=== PATIENT | male | born 1955 | race Caucasian/White ===

== ENCOUNTER 2020-05-08 17:24 | Inpatient (IN) | payer MEDICARE ==
[~2020-05-08] VITALS: Ht 188 cm; Wt 74.3 kg
[2020-05-08] MEDS ORDERED: OMNIPAQUE 350 MG/ML, 100ML BOTTLE ONE (17:48)
--- NOTE | 2020-05-08 18:05 | NUR ---
ELDA REINA FROM [facility] - PER STAFF, PT AT NURSING HOME WITH L SIDED DEFICITS FROM PREV STROKE BUT PT "LESS VERBAL AND HAS A R HAND TIC" NOW. ACCORDING TO EMS PTS BASELINE SIGNIFIGANT L SIDED DEFICITS, AOX2-3. PT TO CT, 20G R FOREARM PLACED IN CT. PT RETURNED TO ROOM, PT ABLE TO ANSWER QUESTIONS OF NAME, YEAR AND LOCATION, PT FOLLOWING COMMANDS HOWEVER MUCH WEAKER ON L SIDE. PT HAS FEVER OF 101.1F AND BELIEVED TO HAVE COVID OUTBREAK AT NURSING HOME, NOTIFIED AND PT PLACED ON ISOLATION. TELE NEURO COMPLETE. PT ON MONITOR, VSS.
[2020-05-08 18:10] LABS: BASOPHILS # (AUTO) 0.01 x10^3/uL (0-0.1); BASOPHILS % (AUTO) 0 % (0-1); EOSINOPHILS % (AUTO) 0 % (1-7); LYMPHOCYTES # (AUTO) 0.49 x10^3/uL (1-3.4); LYMPHOCYTES % (AUTO) 5 % (22-44); MD NO; MEAN CORPUSCULAR HEMOGLOBIN 28.5 pg (27.5-34.5); MEAN CORPUSCULAR HGB CONC 32.3 g/dL (33.2-36.2); MEAN PLATELET VOLUME 10.2 fL (7.4-10.4); MONOCYTES # (AUTO) 0.54 x10^3/uL (0.2-0.8); MONOCYTES % (AUTO) 5 % (2-9); NEUTROPHILS # (AUTO) 9.37 x10^3/uL (1.8-6.8); NEUTROPHILS % (AUTO) 90 % (42-75); PLATELET COUNT 122 x10^3/uL (130-400); RED BLOOD COUNT 4.35 x10^6/uL (4.38-5.82); RED CELL DISTRIBUTION WIDTH 14.4 % (9.4-14.8)
--- NOTE | 2020-05-08 18:14 | NUR ---
PER NO TPA AT THIS TIME
--- NOTE | 2020-05-08 18:20 | NUR ---
LAB AT BEDSIDE FOR BLOOD CULTURES
[2020-05-08 18:22] LABS: INTERNATIONAL NORMALIZED RATIO 0.99 (0.93-1.1); PROTHROMBIN TIME 10.5 Seconds (9.6-11.5)
[2020-05-08] MEDS ORDERED: ACETAMINOPHEN 650 MG SUPP PR ONE (18:30)
[2020-05-08] MEDS ORDERED: SODIUM CHLORIDE 0.9% 1,000ML IVBOLUS ONE ×2 (18:30→21:30)
[2020-05-08] MEDS ORDERED: CEFTRIAXONE PMX 1GM/50ML 50 ML IVPB ONE (18:30)
[2020-05-08] MEDS ORDERED: PLEASE ENTER ALLERGIES MC SCH (18:30)
[2020-05-08] MEDS ORDERED: CEFTRIAXONE PMX 1GM/50ML 50 ML ONE (18:36)
[2020-05-08] MEDS ORDERED: ACETAMINOPHEN 650 MG SUPP ONE (18:36)
--- NOTE | 2020-05-08 18:51 | NUR ---
ATTEMPTED TO CALL [facility] AND [facility] FOR PT INFORMATION. BOTH FACILITIES DECLINING THEY HAVE ANYONE BY THAT NAME.
--- NOTE | 2020-05-08 19:05 | NUR ---
PT GIVEN TYLENOL DC FOR FEVER, IVF BOLUS AND ABX STARTED AFTER BC DRAWN. PT SWABBED BY FOR COVID. URINE SAMPLE COLLECTED AND WALKED TO LAB.
--- NOTE | 2020-05-08 19:06 | NUR ---
REPORT TO VINICIO TATUM
--- NOTE | 2020-05-08 19:09 | NUR ---
RECEIVED BS REPORT FROM RC GUZMAN TO ASSUME CARE OF PT. AT THIS TIME. PT. DENIES NEEDS CURRENTLY. IV ABX AND IV FLUIDS INFUSING AT THIS TIME PER MAR. ALL MONITORS IN PLACE. ALL SAFETY MEASURES OBSERVED. PT. A&O X 2-3 AND THIS IS BASELINE PER REPORT. PAN IN PLACE.
[2020-05-08 19:11] LABS: MICROSCOPIC INDICATED
--- NOTE | 2020-05-08 19:45 | NUR ---
PT. CONTINUES RESTING ON GURNEY WITH NO DISTRESS. DENIES NEEDS. IVF COMPLETED. VS UPDATED. AWAITING PLACEMENT UPSTAIRS.
[2020-05-08] MEDS ORDERED: LABETALOL 5MG/ML, 20ML IVPush PRN (21:00)
[2020-05-08] MEDS ORDERED: ONDANSETRON 2MG/ML, 2ML IVPush PRN (21:00)
[2020-05-08] MEDS ORDERED: CEFTRIAXONE PMX 1GM/50ML 50 ML IV SCH (21:00)
--- NOTE | 2020-05-08 21:03 | NUR ---
FIRST ATTEMPT TO CALL REPORT TO FLOOR.
--- NOTE | 2020-05-08 21:04 | NUR ---
PT. CONTINUES RESTING ON GURNEY WITH NO COMPLAINTS. DENIES NEEDS. AWARE OF PLAN FOR ADMISSION TO FLOOR.
--- NOTE | 2020-05-08 21:19 | NUR ---
2ND ATTEMPT TO CALL REPORT TO FLOOR.
--- NOTE | 2020-05-08 21:31 | NUR ---
REPORT CALLED TO RC DAY. RN STATES THE ROOM IS NOT CLEAN AND READY FOR PT. TRANSPORT AND THAT WE WILL GET A CALL WHEN ROOM IS READY.
[2020-05-08 21:49] LABS: ALBUMIN 2.2 g/dL (3.4-5.0)
[2020-05-08] MEDS ORDERED: ACETAMINOPHEN 325 MG TABLET ONE (21:51)
[2020-05-08] MEDS: ACETAMINOPHEN 325 MG TABLET PO PRN (21:58)
--- NOTE | 2020-05-08 21:58 | NUR ---
PT. WITH NOTED TEMP AGAIN TO 100.3; MEDICATED PER MAR WITH PO TYLENOL. PT. WAS ABLE TO PASS SWALLOW EVAL PRIOR TO BEING MEDICATED. PT. IS ABLE TO FOLLOW MOST COMMANDS BUT DOES REMAIN CONFUSED TO WHY HE IS IN HOSPITAL. PT. ABLE TO SWALLOW FIRST PILL WITH WATER WITHOUT ISSUE. PT. DID CHEW UP THE 2ND PILL HOWEVER BUT WAS ABLE TO GET IT DOWN WITH WATER. PT. INTERMITTENLY CONFUSED.
[2020-05-08 22:01] LABS: BILIRUBIN, DIRECT 0.2 mg/dL (0.1-0.2); BILIRUBIN,INDIRECT 0.2 mg/dL (0.0-2.0); BILIRUBIN,TOTAL 0.4 mg/dL (0.2-1.0); TOTAL PROTEIN 6.5 g/dL (6.4-8.2)
--- NOTE | 2020-05-08 22:13 | NUR ---
PT. BEING TRANSPORTED TO FLOOR AT THIS TIME. FSBS OF 214 REPORTED TO [facility]. REQUESTED [facility] TO ENSURE TO CHART B/P'S AFTER BOLUS COMPLETED. BOLUS WAS ABOUT HALF-WAY COMPLETED AT TIME OF TRANSFER TO FLOOR.
[2020-05-08 22:25] VITALS: BP 73/49
[2020-05-08 22:25] LABS: AMPHETAMINE SCREEN, URINE Negative (Negative); BARBITURATE SCREEN, URINE Negative (Negative); BENZODIAZEPINE SCREEN, URINE Negative (Negative); CANNABINOID SCREEN, URINE Negative (Negative); COCAINE SCREEN, URINE Negative (Negative); METHADONE SCREEN, URINE Negative (Negative); OPIATE SCREEN, URINE Negative (Negative)
[2020-05-08 22:48] VITALS: BP 84/56
[2020-05-08] MEDS: LACTATED RINGERS 1,000 ML IV SCH (22:51)
[2020-05-08] MEDS ORDERED: SODIUM CHLORIDE 0.9%, 500ML IVBOLUS ONE (23:00)
[2020-05-08 23:05] VITALS: BP 83/54
[2020-05-08] MEDS: INSULIN LISPRO 100 UNITS/ML, PEN SQ-INSULIN SCH (23:40)
[2020-05-09 00:12] VITALS: BP 81/53
[2020-05-09 00:18] VITALS: BP 86/57
[2020-05-09 00:54] VITALS: BP 92/63
[2020-05-09] MEDS ORDERED: VANCOMYCIN PER PHARMACY MC PRN (02:30)
[2020-05-09] MEDS ORDERED: PHARMACY MAY ADJ FOR RENAL FX MC PRN (02:30)
[2020-05-09] MEDS ORDERED: ACETAMINOPHEN 650 MG SUPP PR PRN (02:30)
[2020-05-09] MEDS: NOREPINEPHRINE 8 MG in SODIUM CHLORIDE 0.9% 242 ML IV PRN ×2 (02:45→09:30)
[2020-05-09] MEDS ORDERED: PHARMACOKINETIC MONITORING MC PRN (03:00)
[2020-05-09] MEDS ORDERED: VANCOMYCIN 2,000 MG in SODIUM CHLORIDE 0.9% 500 ML IV ONE (03:00)
[2020-05-09] MEDS ORDERED: PHARMACOKINETIC CONSULTATION MC ONE (03:00)
[2020-05-09] MEDS: PIPERACILLIN/TAZO/PMX 3.375GM 50 ML IV SCH ×4 (03:38→21:32)
[2020-05-09] MEDS ORDERED: ASPIRIN 81 MG TABLET EC PO SCH (06:00)
[2020-05-09 07:25] LABS: ANION GAP 9 mmol/L (5-15); CALCIUM 8.1 mg/dL (8.5-10.1); CHLORIDE 114 mmol/L (98-107); CHOLESTEROL, TOTAL 51 mg/dL (140-239); TRIGLYCERIDES 119 mg/dL (50-200); VLDL CHOLESTEROL 24 mg/dL (0-25)
[2020-05-09 07:28] LABS: CHOL/HDL RATIO 1.8; HDL CHOL % 55 % (26-37); HDL CHOLESTEROL (DIRECT) 28 mg/dL (40-60)
[2020-05-09] MEDS: INSULIN LISPRO 100 UNITS/ML, PEN SQ-INSULIN SCH ×4 (07:29→21:40)
[2020-05-09 07:39] LABS: LDL CHOLESTEROL,CALCULATED < 5 mg/dL (54-169); LDL/HDL RATIO 0.2 (0.5-3.0)
[2020-05-09 07:52] LABS: MD YES; MEAN CORPUSCULAR HEMOGLOBIN 28.5 pg (27.5-34.5); RED BLOOD COUNT 4.45 x10^6/uL (4.38-5.82); RED CELL DISTRIBUTION WIDTH 14.9 % (9.4-14.8)
[2020-05-09 07:53] LABS: BAND#(MANUAL) 6.88 x10^3/uL; BANDS%(MANUAL) 25 % (0-7); LYMPH#(MANUAL) 0.55 x10^3/uL (1-3.4); LYMPHS% (MANUAL) 2 % (22-44); METAMYELOCYTES# (MANUAL) 1.38 x10^3/uL (0-0); METAMYELOCYTES% (MANUAL) 5 % (0-1); MONOS#(MANUAL) 0.55 x10^3/uL (0.3-2.7); MONOS% (MANUAL) 2 % (2-9); PMNS WITH VACUOLES 1+; SEG#(MANUAL) 18.15 x10^3/uL (1.8-6.8); SEGS% (MANUAL) 66 % (42-75)
[2020-05-09 08:00] LABS: MEAN PLATELET VOLUME 10.2 fL (7.4-10.4); PLATELET COUNT 91 x10^3/uL (130-400)
[2020-05-09 08:01] LABS: <PLATELET ESTIMATE> DECREASED; <PLT MORPHOLOGY> NORMAL PLT MORPH; <RBC MORPHOLOGY> NORMAL
[2020-05-09 08:39] LABS: HCT (SEDRATE) 39.6 % (39.2-51.8)
[2020-05-09] MEDS ORDERED: SODIUM CHLORIDE 0.9% 1,000ML IV ONE (09:00)
[2020-05-09] MEDS: LACTATED RINGERS 1,000 ML IV SCH ×2 (09:55→15:38)
[2020-05-09] MEDS ORDERED: NOREPINEPHRINE 32 MG in SODIUM CHLORIDE 0.9% 218 ML IV PRN (10:00)
[2020-05-09] MEDS: morphine SULFATE 10 MG/ML, 1ML IVPush PRN ×3 (10:09→22:27)
[2020-05-09] MEDS: D5%-0.45NACL+KCL 40MEQ 1,000 ML IV SCH ×2 (14:20→22:28)
[2020-05-09] MEDS: HEPARIN 5,000 UNITS/ML, 1ML SQ SCH (14:22)
[2020-05-09] MEDS ORDERED: MORPHINE SULFATE 4 MG/ML, 1ML ONE (22:25)
[2020-05-10] MEDS: HEPARIN 5,000 UNITS/ML, 1ML SQ SCH ×2 (01:18→11:17)
[2020-05-10 01:35] LABS: MICROSCOPIC INDICATED
[2020-05-10] MEDS: PIPERACILLIN/TAZO/PMX 3.375GM 50 ML IV SCH ×4 (02:11→21:40)
[2020-05-10] MEDS: VANCOMYCIN 1,500 MG in SODIUM CHLORIDE 0.9% 250 ML IV SCH (04:22)
[2020-05-10 04:44] LABS: CHLORIDE 116 mmol/L (98-107)
[2020-05-10 04:59] LABS: MD YES; MEAN CORPUSCULAR HEMOGLOBIN 28.3 pg (27.5-34.5); MEAN CORPUSCULAR HGB CONC 31.5 g/dL (33.2-36.2); MEAN PLATELET VOLUME 11.5 fL (7.4-10.4); PLATELET COUNT 69 x10^3/uL (130-400); RED BLOOD COUNT 4.16 x10^6/uL (4.38-5.82); RED CELL DISTRIBUTION WIDTH 14.8 % (9.4-14.8)
[2020-05-10 05:01] LABS: <PLATELET ESTIMATE> DECREASED; <RBC MORPHOLOGY> NORMAL; BAND#(MANUAL) 14.04 x10^3/uL; BANDS%(MANUAL) 36 % (0-7); LARGE PLATELETS 1+; LYMPH#(MANUAL) 1.56 x10^3/uL (1-3.4); LYMPHS% (MANUAL) 4 % (22-44); METAMYELOCYTES# (MANUAL) 2.34 x10^3/uL (0-0); METAMYELOCYTES% (MANUAL) 6 % (0-1); MONOS#(MANUAL) 2.34 x10^3/uL (0.3-2.7); MONOS% (MANUAL) 6 % (2-9); SEG#(MANUAL) 18.72 x10^3/uL (1.8-6.8); SEGS% (MANUAL) 48 % (42-75)
[2020-05-10 05:02] LABS: ALANINE AMINOTRANSFERASE 21 U/L (12-78); ALBUMIN 1.7 g/dL (3.4-5.0); ALKALINE PHOSPHATASE 57 U/L (45-117); ANION GAP 6 mmol/L (5-15); BILIRUBIN,TOTAL 0.6 mg/dL (0.2-1.0); CALCIUM 7.6 mg/dL (8.5-10.1); TOTAL PROTEIN 5.6 g/dL (6.4-8.2)
[2020-05-10] MEDS: ASPIRIN 81 MG TABLET CHEW PO SCH (06:49)
[2020-05-10] MEDS: LACTATED RINGERS 1,000 ML IV SCH ×2 (06:50→15:09)
[2020-05-10] MEDS: morphine SULFATE 10 MG/ML, 1ML IVPush PRN ×2 (07:24→13:27)
[2020-05-10] MEDS: ACETAMINOPHEN 325 MG TABLET PO PRN (07:24)
[2020-05-10] MEDS: INSULIN LISPRO 100 UNITS/ML, PEN SQ-INSULIN SCH ×4 (07:28→21:00)
[2020-05-11] MEDS: HEPARIN 5,000 UNITS/ML, 1ML SQ SCH (01:30)
[2020-05-11] MEDS: LACTATED RINGERS 1,000 ML IV SCH ×4 (01:31→23:51)
[2020-05-11] MEDS: PIPERACILLIN/TAZO/PMX 3.375GM 50 ML IV SCH ×4 (02:33→20:09)
[2020-05-11] MEDS: VANCOMYCIN 1,500 MG in SODIUM CHLORIDE 0.9% 250 ML IV SCH (04:40)
[2020-05-11] MEDS: morphine SULFATE 10 MG/ML, 1ML IVPush PRN ×2 (04:41→17:02)
[2020-05-11 05:11] LABS: CHLORIDE 119 mmol/L (98-107)
[2020-05-11 05:16] LABS: ANION GAP 4 mmol/L (5-15); CALCIUM 8.2 mg/dL (8.5-10.1); CREATININE 1.55 mg/dL (0.7-1.3)
[2020-05-11 05:49] LABS: MEAN CORPUSCULAR HEMOGLOBIN 28.5 pg (27.5-34.5); MEAN CORPUSCULAR HGB CONC 32.4 g/dL (33.2-36.2); MEAN PLATELET VOLUME 11.4 fL (7.4-10.4); RED BLOOD COUNT 4.41 x10^6/uL (4.38-5.82); RED CELL DISTRIBUTION WIDTH 14.6 % (9.4-14.8)
[2020-05-11 05:55] LABS: PLATELET COUNT 46 x10^3/uL (130-400)
[2020-05-11 05:56] LABS: MD YES
[2020-05-11 05:57] LABS: LYMPH#(MANUAL) 1.23 x10^3/uL (1-3.4); LYMPHS% (MANUAL) 5 % (22-44)
[2020-05-11 05:58] LABS: BAND#(MANUAL) 3.44 x10^3/uL; BANDS%(MANUAL) 14 % (0-7); METAMYELOCYTES# (MANUAL) 0.49 x10^3/uL (0-0); METAMYELOCYTES% (MANUAL) 2 % (0-1); MONOS#(MANUAL) 0.49 x10^3/uL (0.3-2.7); MONOS% (MANUAL) 2 % (2-9); SEG#(MANUAL) 18.94 x10^3/uL (1.8-6.8); SEGS% (MANUAL) 77 % (42-75)
[2020-05-11 05:59] LABS: ECHINOCYTES 1+
[2020-05-11] MEDS: ASPIRIN 81 MG TABLET CHEW PO SCH (05:59)
[2020-05-11 06:00] LABS: OVALOCYTES 1+; PMNS WITH VACUOLES 1+
[2020-05-11 06:01] LABS: <PLATELET ESTIMATE> DECREASED; LARGE PLATELETS 1+
[2020-05-11] MEDS: INSULIN LISPRO 100 UNITS/ML, PEN SQ-INSULIN SCH ×4 (06:49→19:50)
[2020-05-11] MEDS ORDERED: SODIUM CHLORIDE 0.9%, 500ML IVBOLUS ONE (08:00)
[2020-05-11 21:11] VITALS: BP 101/66
[2020-05-12 01:10] VITALS: BP 116/69
[2020-05-12] MEDS ORDERED: CATHFLO-ALTEPLASE 2 MG/2 ML CATHFLUSH ONE (02:30)
[2020-05-12] MEDS: PIPERACILLIN/TAZO/PMX 3.375GM 50 ML IV SCH ×4 (02:52→20:15)
[2020-05-12 04:18] LABS: MEAN CORPUSCULAR HEMOGLOBIN 28.3 pg (27.5-34.5); MEAN PLATELET VOLUME 10.6 fL (7.4-10.4); RED BLOOD COUNT 3.88 x10^6/uL (4.38-5.82); RED CELL DISTRIBUTION WIDTH 14.8 % (9.4-14.8)
[2020-05-12 04:21] LABS: PLATELET COUNT 45 x10^3/uL (130-400)
[2020-05-12 04:24] LABS: ALBUMIN 1.7 g/dL (3.4-5.0); ANION GAP 4 mmol/L (5-15); CALCIUM 8.2 mg/dL (8.5-10.1); CHLORIDE 120 mmol/L (98-107)
[2020-05-12 04:27] LABS: ALANINE AMINOTRANSFERASE 13 U/L (12-78); ALKALINE PHOSPHATASE 68 U/L (45-117); BILIRUBIN,TOTAL 0.5 mg/dL (0.2-1.0); CREATININE 1.25 mg/dL (0.7-1.3); TOTAL PROTEIN 4.9 g/dL (6.4-8.2); VANCOMYCIN,TROUGH 23.1 mcg/mL (5.0-10.0)
[2020-05-12 04:43] LABS: MD YES
[2020-05-12 04:46] LABS: BAND#(MANUAL) 1.62 x10^3/uL; BANDS%(MANUAL) 8 % (0-7); LYMPH#(MANUAL) 1.42 x10^3/uL (1-3.4); LYMPHS% (MANUAL) 7 % (22-44); METAMYELOCYTES# (MANUAL) 0.41 x10^3/uL (0-0); METAMYELOCYTES% (MANUAL) 2 % (0-1); MONOS#(MANUAL) 0.41 x10^3/uL (0.3-2.7); MONOS% (MANUAL) 2 % (2-9); REACTIVE LYMPHS # (MANUAL) 0.41 x10^3/uL (0-0); REACTIVE LYMPHS % (MANUAL) 2 % (0-0); SEG#(MANUAL) 16.04 x10^3/uL (1.8-6.8); SEGS% (MANUAL) 79 % (42-75)
[2020-05-12 04:47] LABS: <PLATELET ESTIMATE> DECREASED; ECHINOCYTES 1+; OVALOCYTES 1+
[2020-05-12 04:48] LABS: LARGE PLATELETS 1+
[2020-05-12] MEDS: ASPIRIN 81 MG TABLET CHEW PO SCH (06:00)
[2020-05-12] MEDS: LACTATED RINGERS 1,000 ML IV SCH ×3 (06:23→23:14)
[2020-05-12] MEDS: INSULIN LISPRO 100 UNITS/ML, PEN SQ-INSULIN SCH ×4 (07:00→22:24)
[2020-05-12 07:06] VITALS: BP 161/79
[2020-05-12 07:31] VITALS: BP 154/84
[2020-05-12 12:50] VITALS: BP 132/84
[2020-05-12] MEDS: morphine SULFATE 10 MG/ML, 1ML IVPush PRN (13:02)
[2020-05-12 20:19] VITALS: BP 123/81
[2020-05-13 00:30] VITALS: BP 137/85
[2020-05-13] MEDS: PIPERACILLIN/TAZO/PMX 3.375GM 50 ML IV SCH ×2 (02:30→08:04)
[2020-05-13] MEDS: ASPIRIN 81 MG TABLET CHEW PO SCH (05:35)
[2020-05-13] MEDS: INSULIN LISPRO 100 UNITS/ML, PEN SQ-INSULIN SCH ×3 (07:00→16:00)
[2020-05-13 07:17] VITALS: BP 142/75
[2020-05-13] MEDS: LACTATED RINGERS 1,000 ML IV SCH ×2 (08:04→17:00)
[2020-05-13 10:44] LABS: MEAN CORPUSCULAR HEMOGLOBIN 28.5 pg (27.5-34.5); MEAN CORPUSCULAR HGB CONC 32.5 g/dL (33.2-36.2); MEAN PLATELET VOLUME 11.2 fL (7.4-10.4); PLATELET COUNT 56 x10^3/uL (130-400); RED BLOOD COUNT 4.08 x10^6/uL (4.38-5.82); RED CELL DISTRIBUTION WIDTH 14.1 % (9.4-14.8)
[2020-05-13 11:24] LABS: MD YES
[2020-05-13 11:25] LABS: BAND#(MANUAL) 0.27 x10^3/uL; BANDS%(MANUAL) 2 % (0-7); EOS% (MANUAL) 6 % (1-7); LYMPH#(MANUAL) 0.54 x10^3/uL (1-3.4); LYMPHS% (MANUAL) 4 % (22-44); MONOS#(MANUAL) 0.13 x10^3/uL (0.3-2.7); MONOS% (MANUAL) 1 % (2-9); SEG#(MANUAL) 11.66 x10^3/uL (1.8-6.8); SEGS% (MANUAL) 87 % (42-75)
[2020-05-13 11:27] LABS: <PLATELET ESTIMATE> DECREASED; ANISOCYTOSIS 1+; OVALOCYTES 1+
[2020-05-13 11:28] LABS: LARGE PLATELETS 1+
[2020-05-13 11:29] LABS: ACANTHOCYTES 1+; ECHINOCYTES 1+
[2020-05-13 12:40] VITALS: BP 164/99
[2020-05-13] MEDS ORDERED: AMOX250S6 PO (14:53)
[2020-05-13] MEDS ORDERED: ASPI-515 PO (14:53)
[2020-05-13] MEDS ORDERED: AMOXICILLIN 250 MG/5 ML, ORAL SUSP PO SCH (16:00)
== END 2020-05-13 18:16 | disposition home or self-care (01) | DRG 871 ==
LOC: EDSEX 17:24 → EDBD 17:24 → ED 19:19 → EDIP 19:27 → 4EST 22:22 → CCU 05-09 01:39 → 3N 05-11 15:26
PROVIDERS: ADMIT Family Medicine; ATTEND Internal Medicine
PROC: 0T9B70Z Drainage of Bladder with Drainage Device, Via Natural or Artificial Opening (ICD-10-PCS; 2020-05-08)
PROC: 4A10X4Z Monitoring of Central Nervous Electrical Activity, External Approach (ICD-10-PCS; principal; 2020-05-09)
PROC: 02HV33Z Insertion of Infusion Device into Superior Vena Cava, Percutaneous Approach (ICD-10-PCS; 2020-05-09)
PROC: B548ZZA Ultrasonography of Superior Vena Cava, Guidance (ICD-10-PCS; 2020-05-09)
DX: A41.9 Sepsis, unspecified organism (principal); G93.41 Metabolic encephalopathy; N17.0 Acute kidney failure with tubular necrosis; R65.21 Severe sepsis with septic shock; E87.0 Hyperosmolality and hypernatremia; N39.0 Urinary tract infection, site not specified; I69.854 Hemiplegia and hemiparesis following other cerebrovascular disease affecting left non-dominant side; E44.0 Moderate protein-calorie malnutrition; D64.9 Anemia, unspecified; D69.6 Thrombocytopenia, unspecified; B96.4 Proteus (mirabilis) (morganii) as the cause of diseases classified elsewhere; G51.0 Bell's palsy; Z79.4 Long term (current) use of insulin; E11.65 Type 2 diabetes mellitus with hyperglycemia; R33.9 Retention of urine, unspecified; F01.50 Vascular dementia, unspecified severity, without behavioral disturbance, psychotic disturbance, mood disturbance, and anxiety; Z68.21 Body mass index [BMI] 21.0-21.9, adult; F95.8 Other tic disorders
CPT/HCPCS: 36415; 36573; 70450; 70496; 70498; 70551; 71045; 80047; 80048; 80053; 80061; 80076; 80202; 80307; 81001; 82140; 82533; 82542; 82962; 83036; 83605; 83735; 84100; 84443; 85025; 85610; 85651; 85730; 86022; 87040; 87077; 87081; 87086; 87186; 87635; 93005; 95819; 96365; 99292; G0378; J0696; J1644; J2543; J2997; J3370; Q9967; C1751; J1815; J2270; J3480; J7030; J7040; J7050; J7120

== ENCOUNTER → 2020-05-19 | Outpatient (CLI) | payer MEDICARE ==
[~2020-05-19] MED LIST: AMOX250S6 PO; ASPI-515 PO; OMNIPAQUE 350 MG/ML, 100ML BOTTLE ONE
== END | disposition home or self-care (01) ==
LOC: RAD 15:16
PROVIDERS: ATTEND Student in an Organized Health Care Education/Training Program
DX: N20.0 Calculus of kidney (principal); J90 Pleural effusion, not elsewhere classified; J98.11 Atelectasis; I25.10 Atherosclerotic heart disease of native coronary artery without angina pectoris; M79.89 Other specified soft tissue disorders; R19.00 Intra-abdominal and pelvic swelling, mass and lump, unspecified site
CPT/HCPCS: 74178; Q9967

== ENCOUNTER 2020-06-14 13:42 | Day surgery (SDC) | payer MEDICARE ==
[~2020-06-14] VITALS: Ht 182.9 cm; Wt 82.0 kg
[~2020-06-14 13:42] MED LIST changes: -OMNIPAQUE 350 MG/ML, 100ML BOTTLE ONE
[2020-06-14] MEDS ORDERED: FENTANYL PF 100 MCG/2ML ONE ×2 (13:44→18:35)
[2020-06-14] MEDS ORDERED: MIDAZOLAM 1 MG/ML, 2ML ONE (13:44)
[2020-06-14] MEDS ORDERED: LACTATED RINGERS 1,000 ML IV SCH (14:09)
[2020-06-14 14:17] VITALS: BP 100/77
[2020-06-14] MEDS ORDERED: CHLORHEXIDINE 15 ML UDC MM ONE (14:30)
[2020-06-14] MEDS ORDERED: DEXTROSE 50%, 50ML SYRINGE IVPush ONE (14:36)
[2020-06-14 14:53] LABS: ALANINE AMINOTRANSFERASE 22 U/L (12-78); ALBUMIN 2.9 g/dL (3.4-5.0); ANION GAP 6 mmol/L (5-15); CALCIUM 8.9 mg/dL (8.5-10.1); CHLORIDE 112 mmol/L (98-107); CREATININE 0.81 mg/dL (0.7-1.3)
[2020-06-14 14:55] LABS: ALKALINE PHOSPHATASE 72 U/L (45-117); BILIRUBIN,TOTAL 0.5 mg/dL (0.2-1.0); TOTAL PROTEIN 6.9 g/dL (6.4-8.2)
[2020-06-14] MEDS ORDERED: TAMS-11 PO (14:56)
[2020-06-14] MEDS ORDERED: SERT50TA28 PO (14:56)
[2020-06-14] MEDS ORDERED: GLIP5TAB10 PO (14:56)
[2020-06-14] MEDS ORDERED: ASPI-496 PO (14:56)
[2020-06-14] MEDS ORDERED: CLOPIDOGREL PO (14:56)
[2020-06-14] MEDS ORDERED: UBID100C41 PO (14:56)
[2020-06-14] MEDS ORDERED: CRAN500T2 PO (14:56)
[2020-06-14] MEDS ORDERED: ATOR-2 PO (14:56)
[2020-06-14] MEDS ORDERED: CA/D1TAB7 PO (14:56)
[2020-06-14] MEDS ORDERED: LISI-170 PO (14:56)
[2020-06-14] MEDS ORDERED: NITR50CA PO (14:56)
[2020-06-14] MEDS ORDERED: PROBIOTIC (14:56)
[2020-06-14] MEDS ORDERED: BUPIVACAINE/PF 0.25% ONE (15:38)
[2020-06-14] MEDS ORDERED: OXYcodone 5 MG/5 ML ORAL.SOL UDC PO PRN (16:00)
[2020-06-14] MEDS ORDERED: FENTANYL PF 100 MCG/2ML IV PRN (16:00)
[2020-06-14] MEDS ORDERED: DIPHENHYDRAMINE 50 MG/ML, 1ML IVPush PRN (16:00)
[2020-06-14] MEDS ORDERED: ACETAMINOPHEN 325 MG TABLET PO PRN (16:00)
[2020-06-14] MEDS ORDERED: HYDROmorphone 1 MG/ML, 1ML INJ IVPush PRN (16:00)
[2020-06-14] MEDS ORDERED: PROMETHAZINE 25 MG/ML, 1ML IVPush PRN (16:00)
[2020-06-14] MEDS ORDERED: ONDANSETRON 2MG/ML, 2ML IVPush PRN (16:00)
[2020-06-14] MEDS ORDERED: CEFAZOLIN PMX 2GM/100ML ONE (16:26)
[2020-06-14] MEDS ORDERED: PROPOFOL 10 MG/ML, 100ML IV ONE (16:26)
[2020-06-14] MEDS ORDERED: ONDANSETRON 2MG/ML, 2ML ONE ×2 (16:26→19:09)
== END 2020-06-14 22:27 | disposition home or self-care (01) ==
LOC: OR 13:42 → 4NW 19:30 → OR 22:27
PROVIDERS: ATTEND Student in an Organized Health Care Education/Training Program
DX: N31.9 Neuromuscular dysfunction of bladder, unspecified (principal); Z20.828 Contact with and (suspected) exposure to other viral communicable diseases; R39.81 Functional urinary incontinence; R33.8 Other retention of urine; E11.9 Type 2 diabetes mellitus without complications; Z79.4 Long term (current) use of insulin; Z79.899 Other long term (current) drug therapy
CPT/HCPCS: 51102; 80053; 82962; 87635; J0690; J2250; J2405; J2704; J3010; J3490; J7120; G0378

== ENCOUNTER 2020-06-27 11:15 | Emergency (ER) | payer MEDICARE ==
[~2020-06-27] VITALS: Ht 172.7 cm; Wt 65.0 kg
[~2020-06-27 11:15] MED LIST changes: +ASPI-496 PO; +ATOR-2 PO; +CA/D1TAB7 PO; +CLOPIDOGREL PO; +CRAN500T2 PO; +GLIP5TAB10 PO; +LISI-170 PO; +NITR50CA PO; +PROBIOTIC; +SERT50TA28 PO; +TAMS-11 PO; +UBID100C41 PO
--- NOTE | 2020-06-27 11:33 | NUR ---
BIBA FROM [facility] FOR LOWER ABD DISTENTION, PT HAS SUPRAPUBIC CATH AND ONLY 200ML OUTPUT SINCE LAST NIGHT. HX CVA WITH LEFT SIDE DEFICITS, PT IS WHEELCHAIR BOUND. PT NOTED TO BE ANXIOUS AND DIAPHORETIC ON ARRIVAL, PLACED ON CARDIAC AND VITALS MONITORS, FALL PRECAUTIONS IN PLACE.
[2020-06-27 11:45] LABS: BASOPHILS # (AUTO) 0.05 x10^3/uL (0-0.1); BASOPHILS % (AUTO) 0 % (0-1); EOSINOPHILS # (AUTO) 0.16 x10^3/uL (0-0.4); EOSINOPHILS % (AUTO) 1 % (1-7); LYMPHOCYTES # (AUTO) 1.22 x10^3/uL (1-3.4); LYMPHOCYTES % (AUTO) 9 % (22-44); MD NO; MEAN CORPUSCULAR HEMOGLOBIN 28.4 pg (27.5-34.5); MEAN CORPUSCULAR HGB CONC 32.5 g/dL (33.2-36.2); MEAN CORPUSCULAR VOLUME 87.5 fL (81-97); MEAN PLATELET VOLUME 9.1 fL (7.4-10.4); MONOCYTES % (AUTO) 4 % (2-9); NEUTROPHILS # (AUTO) 12.22 x10^3/uL (1.8-6.8); NEUTROPHILS % (AUTO) 86 % (42-75); PLATELET COUNT 246 x10^3/uL (130-400); RED BLOOD COUNT 5.21 x10^6/uL (4.38-5.82); RED CELL DISTRIBUTION WIDTH 16.2 % (9.4-14.8)
[2020-06-27 11:56] LABS: ALBUMIN 3.3 g/dL (3.4-5.0); ANION GAP 11 mmol/L (5-15); CALCIUM 9.7 mg/dL (8.5-10.1); CHLORIDE 112 mmol/L (98-107)
[2020-06-27 11:57] LABS: CREATININE 1.19 mg/dL (0.7-1.3)
--- NOTE | 2020-06-27 12:12 | NUR ---
ATTEMPTED TO HAND IRRIGATE CATHETER WITH NO SUCCESS. THE DRAINAGE LINE IS TOO SEDIMENTED TO GET ANY KIND OF FLOW. MD NOTIFIED. UROLOGIST CALLED
--- NOTE | 2020-06-27 12:57 | NUR ---
REPORT FROM ANAID TATUM.
[2020-06-27] MEDS ORDERED: LORazepam 2 MG/ML, 1ML ONE (13:34)
[2020-06-27] MEDS ORDERED: LORazepam 2 MG/ML, 1ML IVPush ONE (14:00)
--- NOTE | 2020-06-27 14:29 | NUR ---
PT SLEEPING IN NAD, EVEN AND UNLABORED RESPIRATIONS, FALL PRECAUTIONS IN PLACE.
--- NOTE | 2020-06-27 14:51 | NUR ---
UROLOGY AT BEDSIDE.
--- NOTE | 2020-06-27 15:12 | NUR ---
PAN PLACED BY UROLOGY PROVIDER.
[2020-06-27] MEDS ORDERED: CEFTRIAXONE PMX 1GM/50ML 50 ML ONE (15:15)
[2020-06-27] MEDS ORDERED: CEFTRIAXONE PMX 1GM/50ML 50 ML IV ONE (15:30)
[2020-06-27 15:32] LABS: MICROSCOPIC INDICATED
--- NOTE | 2020-06-27 16:01 | NUR ---
PT TRANSPORTED TO IMAGING FOR CYSTOGRAM.
--- NOTE | 2020-06-27 16:54 | NUR ---
HANNAH AT [facility] ACCEPTED TRANSFER FOR PATIENT BACK TO HIS DETENTION.
[2020-06-27 18:06] VITALS: BP 123/78
--- NOTE | 2020-06-27 18:07 | NUR ---
PT SLEEPING IN NAD, EVEN AND UNLABORED RESPIRATIONS. VSS. AWAITING [facility] FOR TRANSPORT.
== END 2020-06-27 18:40 | disposition home or self-care (01) ==
LOC: ED 12:30
DX: R33.9 Retention of urine, unspecified (principal); R10.9 Unspecified abdominal pain; E11.9 Type 2 diabetes mellitus without complications; Z86.73 Personal history of transient ischemic attack (TIA), and cerebral infarction without residual deficits; Z87.891 Personal history of nicotine dependence
CPT/HCPCS: 36415; 51600; 74430; 80048; 81001; 82040; 85025; 87077; 87086; 87186; 96365; 96366; 96375; 99285; J0696; J2060; Q9958; 51702

== ENCOUNTER 2020-08-04 22:27 | Inpatient (IN) | payer MEDICARE ==
[~2020-08-04] VITALS: Ht 188 cm; Wt 66.5 kg
--- NOTE | 2020-08-04 22:29 | NUR ---
pt bernoica dinh [facility] due to an indwelling cath now draining. pt nad, denies additional pain or concerns. pt denies pain at this time but states "i feel pressure" pt states he thinks the last time the cortés was flowing at 1600. greta. jefe díaz at for eval and poc. pt placed on spo2/bp monitoring.
--- NOTE | 2020-08-04 22:35 | NUR ---
Attempted to flush existing suprapubic catheter with no success. ERP to establish new suprapubic catheter.
--- NOTE | 2020-08-04 23:00 | NUR ---
New suprapubic catheter established by ERP. Urine collected and sent to lab. Catheter draining with no problems.
[2020-08-04 23:56] LABS: ANION GAP 3 mmol/L (5-15); BASOPHILS % (AUTO) 1 % (0-1); CALCIUM 8.6 mg/dL (8.5-10.1); CHLORIDE 112 mmol/L (98-107); CREATININE 0.86 mg/dL (0.7-1.3); EOSINOPHILS % (AUTO) 2 % (1-7); LYMPHOCYTES % (AUTO) 17 % (22-44); MEAN CORPUSCULAR HEMOGLOBIN 27.5 pg (27.5-34.5); MEAN CORPUSCULAR HGB CONC 31.8 g/dL (33.2-36.2); MEAN PLATELET VOLUME 8.4 fL (7.4-10.4); MONOCYTES % (AUTO) 4 % (2-9); NEUTROPHILS % (AUTO) 76 % (42-75); PLATELET COUNT 265 x10^3/uL (130-400); RED BLOOD COUNT 4.45 x10^6/uL (4.38-5.82); RED CELL DISTRIBUTION WIDTH 15.6 % (9.4-14.8)
[2020-08-04 23:57] LABS: ALBUMIN 2.5 g/dL (3.4-5.0)
[2020-08-04 23:58] LABS: MD NO
[2020-08-05 00:03] LABS: MICROSCOPIC INDICATED
[2020-08-05] MEDS ORDERED: CEFEPIME 1 GM in DEXTROSE 5% 50 ML IV ONE (00:30)
--- NOTE | 2020-08-05 01:43 | NUR ---
Report given to RC Coffman. Patient to be transferred to room 356.
--- NOTE | 2020-08-05 01:44 | NUR ---
Cleaned up and changed patient; redness noted to sacrum. Relayed to RC Coffman.
[2020-08-05] MEDS ORDERED: MELATONIN 5 MG TABLET PO PRN (02:00)
[2020-08-05] MEDS ORDERED: LABETALOL 5MG/ML, 20ML IVPush PRN (02:00)
[2020-08-05] MEDS ORDERED: PROMETHAZINE 25 MG/ML, 1ML IM PRN (02:00)
[2020-08-05] MEDS: LEVOFLOXACIN/PMX 750MG/150ML 150 ML IV SCH (02:51)
[2020-08-05] MEDS: ENOXAPARIN 40 MG/0.4 ML SQ SCH (02:53)
[2020-08-05 07:36] VITALS: BP 102/52
[2020-08-05] MEDS: ASPIRIN 81 MG TABLET EC PO SCH (09:03)
[2020-08-05] MEDS: TAMSULOSIN 0.4 MG CAP.ER.24H PO SCH (09:03)
[2020-08-05] MEDS: SERTRALINE 50MG TABLET PO SCH (09:03)
[2020-08-05] MEDS: CLOPIDOGREL 75 MG TABLET PO SCH (09:04)
[2020-08-05] MEDS: LISINOPRIL 20 MG TABLET PO SCH ×2 (09:04→20:23)
[2020-08-05 13:51] VITALS: BP 156/66
[2020-08-05] MEDS ORDERED: SODIUM CHLORIDE 0.45% 1,000 ML IV SCH (17:00)
[2020-08-05 19:03] VITALS: BP 151/75
[2020-08-05] MEDS: ATORVASTATIN 80 MG TABLET PO SCH (20:22)
[2020-08-06 01:48] VITALS: BP 128/70
[2020-08-06] MEDS: ENOXAPARIN 40 MG/0.4 ML SQ SCH (03:00)
[2020-08-06] MEDS: LEVOFLOXACIN/PMX 750MG/150ML 150 ML IV SCH (03:20)
[2020-08-06 06:31] LABS: BASOPHILS % (AUTO) 1 % (0-1); EOSINOPHILS % (AUTO) 2 % (1-7); LYMPHOCYTES % (AUTO) 19 % (22-44); MEAN CORPUSCULAR HGB CONC 33.3 g/dL (33.2-36.2); MEAN PLATELET VOLUME 8.8 fL (7.4-10.4); MONOCYTES % (AUTO) 5 % (2-9); NEUTROPHILS % (AUTO) 72 % (42-75); PLATELET COUNT 226 x10^3/uL (130-400); RED BLOOD COUNT 3.75 x10^6/uL (4.38-5.82); RED CELL DISTRIBUTION WIDTH 15.9 % (9.4-14.8)
[2020-08-06 06:39] LABS: ANION GAP 3 mmol/L (5-15); CALCIUM 7.8 mg/dL (8.5-10.1); CHLORIDE 114 mmol/L (98-107); CREATININE 0.81 mg/dL (0.7-1.3)
[2020-08-06 07:09] LABS: MD NO
[2020-08-06] MEDS ORDERED: DEXTROSE 50%, 50ML SYRINGE IVPush PRN (07:30)
[2020-08-06] MEDS ORDERED: DEXTROSE 4 GM TAB.CHEW PO PRN (07:30)
[2020-08-06] MEDS ORDERED: GLUCAGON 1 MG IM PRN (07:30)
[2020-08-06] MEDS ORDERED: D5%-0.45NACL+KCL 20MEQ 1,000 ML IV SCH (07:30)
[2020-08-06 07:44] VITALS: BP 130/73
[2020-08-06] MEDS: TAMSULOSIN 0.4 MG CAP.ER.24H PO SCH (07:59)
[2020-08-06] MEDS: ASPIRIN 81 MG TABLET EC PO SCH (07:59)
[2020-08-06] MEDS: LISINOPRIL 20 MG TABLET PO SCH ×2 (07:59→20:33)
[2020-08-06] MEDS: SERTRALINE 50MG TABLET PO SCH (07:59)
[2020-08-06] MEDS: CLOPIDOGREL 75 MG TABLET PO SCH (07:59)
[2020-08-06] MEDS: SODIUM CHLORIDE FLUSH 10ML SYR IVF SCH ×2 (07:59→20:34)
[2020-08-06 13:44] VITALS: BP 107/64
[2020-08-06 19:17] VITALS: BP 141/82
[2020-08-06] MEDS: ATORVASTATIN 80 MG TABLET PO SCH (20:32)
[2020-08-07 02:16] VITALS: BP 164/81
[2020-08-07] MEDS: LEVOFLOXACIN/PMX 750MG/150ML 150 ML IV SCH (03:46)
[2020-08-07] MEDS: ENOXAPARIN 40 MG/0.4 ML SQ SCH (03:46)
[2020-08-07 05:45] LABS: BASOPHILS % (AUTO) 1 % (0-1); EOSINOPHILS % (AUTO) 3 % (1-7); LYMPHOCYTES % (AUTO) 17 % (22-44); MEAN CORPUSCULAR HEMOGLOBIN 28.1 pg (27.5-34.5); MEAN CORPUSCULAR HGB CONC 33.3 g/dL (33.2-36.2); MEAN PLATELET VOLUME 8.3 fL (7.4-10.4); MONOCYTES % (AUTO) 5 % (2-9); NEUTROPHILS % (AUTO) 74 % (42-75); PLATELET COUNT 227 x10^3/uL (130-400); RED BLOOD COUNT 3.73 x10^6/uL (4.38-5.82); RED CELL DISTRIBUTION WIDTH 15.5 % (9.4-14.8)
[2020-08-07 05:49] LABS: ANION GAP 4 mmol/L (5-15); CHLORIDE 116 mmol/L (98-107); CREATININE 0.84 mg/dL (0.7-1.3)
[2020-08-07 05:54] LABS: MD NO
[2020-08-07 08:13] VITALS: BP 132/78
[2020-08-07] MEDS: LISINOPRIL 20 MG TABLET PO SCH ×2 (08:43→20:03)
[2020-08-07] MEDS: SERTRALINE 50MG TABLET PO SCH (08:43)
[2020-08-07] MEDS: CLOPIDOGREL 75 MG TABLET PO SCH (08:43)
[2020-08-07] MEDS: TAMSULOSIN 0.4 MG CAP.ER.24H PO SCH (08:43)
[2020-08-07] MEDS: ASPIRIN 81 MG TABLET EC PO SCH (08:43)
[2020-08-07] MEDS: SODIUM CHLORIDE FLUSH 10ML SYR IVF SCH ×2 (08:43→20:06)
[2020-08-07] MEDS: ACETAMINOPHEN 325 MG TABLET PO PRN (09:42)
[2020-08-07 12:36] VITALS: BP 130/60
[2020-08-07 19:49] VITALS: BP 150/78
[2020-08-07] MEDS: ATORVASTATIN 80 MG TABLET PO SCH (20:03)
[2020-08-08 01:47] VITALS: BP 159/85
[2020-08-08] MEDS: LEVOFLOXACIN/PMX 750MG/150ML 150 ML IV SCH (03:00)
[2020-08-08] MEDS: ENOXAPARIN 40 MG/0.4 ML SQ SCH (03:00)
[2020-08-08 07:04] VITALS: BP 164/80
[2020-08-08] MEDS: SODIUM CHLORIDE FLUSH 10ML SYR IVF SCH ×2 (09:32→20:14)
[2020-08-08] MEDS: LISINOPRIL 20 MG TABLET PO SCH ×2 (09:32→20:14)
[2020-08-08] MEDS: ASPIRIN 81 MG TABLET EC PO SCH (09:32)
[2020-08-08] MEDS: CLOPIDOGREL 75 MG TABLET PO SCH (09:32)
[2020-08-08] MEDS: TAMSULOSIN 0.4 MG CAP.ER.24H PO SCH (09:33)
[2020-08-08] MEDS: ACETAMINOPHEN 325 MG TABLET PO PRN (09:33)
[2020-08-08] MEDS: SERTRALINE 50MG TABLET PO SCH (09:33)
[2020-08-08] MEDS: AMLODIPINE 5 MG TABLET PO SCH (09:33)
[2020-08-08 12:36] VITALS: BP 135/72
[2020-08-08 19:13] VITALS: BP 153/85
[2020-08-08] MEDS: ATORVASTATIN 80 MG TABLET PO SCH (20:14)
[2020-08-09 00:12] VITALS: BP 143/80
[2020-08-09] MEDS: ENOXAPARIN 40 MG/0.4 ML SQ SCH (03:09)
[2020-08-09] MEDS: LEVOFLOXACIN/PMX 750MG/150ML 150 ML IV SCH (03:09)
[2020-08-09 07:46] VITALS: BP 133/84
[2020-08-09] MEDS: CLOPIDOGREL 75 MG TABLET PO SCH (08:42)
[2020-08-09] MEDS: ASPIRIN 81 MG TABLET EC PO SCH (08:42)
[2020-08-09] MEDS: SODIUM CHLORIDE FLUSH 10ML SYR IVF SCH ×2 (08:42→20:27)
[2020-08-09] MEDS: SERTRALINE 50MG TABLET PO SCH (08:42)
[2020-08-09] MEDS: TAMSULOSIN 0.4 MG CAP.ER.24H PO SCH (08:42)
[2020-08-09] MEDS: ERTAPENEM 1 GM in SODIUM CHLORIDE 0.9% 50 ML IV SCH (08:42)
[2020-08-09] MEDS: AMLODIPINE 5 MG TABLET PO SCH (08:43)
[2020-08-09] MEDS: LISINOPRIL 20 MG TABLET PO SCH ×2 (08:43→20:27)
[2020-08-09 12:55] VITALS: BP 115/72
[2020-08-09 20:22] VITALS: BP 138/82
[2020-08-09] MEDS: ATORVASTATIN 80 MG TABLET PO SCH (20:27)
[2020-08-10 01:50] VITALS: BP 125/74
[2020-08-10] MEDS: ENOXAPARIN 40 MG/0.4 ML SQ SCH (03:00)
[2020-08-10 06:50] VITALS: BP 148/87
[2020-08-10] MEDS: ERTAPENEM 1 GM in SODIUM CHLORIDE 0.9% 50 ML IV SCH (08:55)
[2020-08-10] MEDS: TAMSULOSIN 0.4 MG CAP.ER.24H PO SCH (08:56)
[2020-08-10] MEDS: LISINOPRIL 20 MG TABLET PO SCH ×2 (08:56→22:12)
[2020-08-10] MEDS: ASPIRIN 81 MG TABLET EC PO SCH (08:56)
[2020-08-10] MEDS: AMLODIPINE 5 MG TABLET PO SCH (08:56)
[2020-08-10] MEDS: CLOPIDOGREL 75 MG TABLET PO SCH (08:56)
[2020-08-10] MEDS: SERTRALINE 50MG TABLET PO SCH (08:56)
[2020-08-10] MEDS: SODIUM CHLORIDE FLUSH 10ML SYR IVF SCH ×2 (09:00→22:13)
[2020-08-10] MEDS: MEROPENEM 1 GM in SODIUM CHLORIDE 0.9% 100 ML IV SCH ×2 (10:20→17:20)
[2020-08-10 13:56] VITALS: BP 142/82
[2020-08-10 19:55] VITALS: BP 136/84
[2020-08-10 22:11] VITALS: BP 140/87
[2020-08-10] MEDS: ATORVASTATIN 80 MG TABLET PO SCH (22:12)
[2020-08-11] MEDS: MEROPENEM 1 GM in SODIUM CHLORIDE 0.9% 100 ML IV SCH ×3 (01:36→17:25)
[2020-08-11 01:57] VITALS: BP 143/74
[2020-08-11] MEDS: ENOXAPARIN 40 MG/0.4 ML SQ SCH (03:00)
[2020-08-11 06:51] VITALS: BP 146/83
[2020-08-11] MEDS: LISINOPRIL 20 MG TABLET PO SCH ×2 (09:18→23:06)
[2020-08-11] MEDS: ASPIRIN 81 MG TABLET EC PO SCH (09:18)
[2020-08-11] MEDS: CLOPIDOGREL 75 MG TABLET PO SCH (09:18)
[2020-08-11] MEDS: SODIUM CHLORIDE FLUSH 10ML SYR IVF SCH (09:18)
[2020-08-11] MEDS: SERTRALINE 50MG TABLET PO SCH (09:18)
[2020-08-11] MEDS: AMLODIPINE 5 MG TABLET PO SCH (09:18)
[2020-08-11] MEDS: TAMSULOSIN 0.4 MG CAP.ER.24H PO SCH (09:18)
[2020-08-11 12:10] VITALS: BP 134/71
[2020-08-11 12:10] LABS: ANION GAP 2 mmol/L (5-15); CALCIUM 8.1 mg/dL (8.5-10.1); CHLORIDE 113 mmol/L (98-107); CREATININE 0.71 mg/dL (0.7-1.3)
[2020-08-11 12:12] LABS: BASOPHILS % (AUTO) 1 % (0-1); EOSINOPHILS % (AUTO) 1 % (1-7); LYMPHOCYTES % (AUTO) 7 % (22-44); MEAN CORPUSCULAR HEMOGLOBIN 27.5 pg (27.5-34.5); MEAN CORPUSCULAR HGB CONC 32.3 g/dL (33.2-36.2); MEAN PLATELET VOLUME 8.6 fL (7.4-10.4); MONOCYTES % (AUTO) 3 % (2-9); NEUTROPHILS % (AUTO) 88 % (42-75); PLATELET COUNT 212 x10^3/uL (130-400); RED BLOOD COUNT 3.17 x10^6/uL (4.38-5.82); RED CELL DISTRIBUTION WIDTH 15.9 % (9.4-14.8)
[2020-08-11 12:54] LABS: MD NO
[2020-08-11 15:14] LABS: MICROSCOPIC INDICATED
[2020-08-11 19:21] VITALS: BP 127/77
[2020-08-11] MEDS: SODIUM CHLORIDE 0.9% 1,000 ML IV SCH (19:34)
[2020-08-11] MEDS: ATORVASTATIN 80 MG TABLET PO SCH (23:07)
[2020-08-12 00:33] VITALS: BP 145/73
[2020-08-12] MEDS: MEROPENEM 1 GM in SODIUM CHLORIDE 0.9% 100 ML IV SCH ×3 (02:26→17:24)
[2020-08-12] MEDS: SODIUM CHLORIDE FLUSH 10ML SYR IVF SCH ×3 (02:26→21:02)
[2020-08-12] MEDS: ENOXAPARIN 40 MG/0.4 ML SQ SCH (02:27)
[2020-08-12 07:25] VITALS: BP 150/75
[2020-08-12 08:48] LABS: BASOPHILS % (AUTO) 1 % (0-1); EOSINOPHILS % (AUTO) 3 % (1-7); LYMPHOCYTES % (AUTO) 10 % (22-44); MEAN CORPUSCULAR HGB CONC 32.6 g/dL (33.2-36.2); MEAN PLATELET VOLUME 8.3 fL (7.4-10.4); MONOCYTES % (AUTO) 4 % (2-9); NEUTROPHILS % (AUTO) 83 % (42-75); PLATELET COUNT 201 x10^3/uL (130-400); RED BLOOD COUNT 3.25 x10^6/uL (4.38-5.82); RED CELL DISTRIBUTION WIDTH 16.1 % (9.4-14.8)
[2020-08-12 08:52] LABS: MD NO
[2020-08-12 08:58] LABS: ANION GAP 6 mmol/L (5-15); CALCIUM 8.1 mg/dL (8.5-10.1); CHLORIDE 114 mmol/L (98-107); CREATININE 0.51 mg/dL (0.7-1.3)
[2020-08-12] MEDS: SODIUM CHLORIDE 0.9% 1,000 ML IV SCH ×2 (09:16→21:02)
[2020-08-12] MEDS: LISINOPRIL 20 MG TABLET PO SCH ×2 (09:17→21:01)
[2020-08-12] MEDS: ASPIRIN 81 MG TABLET EC PO SCH (09:17)
[2020-08-12] MEDS: CLOPIDOGREL 75 MG TABLET PO SCH (09:17)
[2020-08-12] MEDS: SERTRALINE 50MG TABLET PO SCH (09:17)
[2020-08-12] MEDS: TAMSULOSIN 0.4 MG CAP.ER.24H PO SCH (09:17)
[2020-08-12] MEDS: AMLODIPINE 5 MG TABLET PO SCH (09:17)
[2020-08-12 12:44] VITALS: BP 147/79
[2020-08-12 19:27] VITALS: BP 154/81
[2020-08-12] MEDS: ATORVASTATIN 80 MG TABLET PO SCH (21:01)
[2020-08-13 01:14] VITALS: BP 157/90
[2020-08-13] MEDS: MEROPENEM 1 GM in SODIUM CHLORIDE 0.9% 100 ML IV SCH ×3 (01:18→17:57)
[2020-08-13] MEDS: ENOXAPARIN 40 MG/0.4 ML SQ SCH (03:44)
[2020-08-13 07:10] VITALS: BP 169/87
[2020-08-13 08:20] LABS: BASOPHILS % (AUTO) 1 % (0-1); EOSINOPHILS % (AUTO) 4 % (1-7); LYMPHOCYTES % (AUTO) 16 % (22-44); MEAN CORPUSCULAR HEMOGLOBIN 28.3 pg (27.5-34.5); MEAN CORPUSCULAR HGB CONC 32.8 g/dL (33.2-36.2); MEAN PLATELET VOLUME 8.8 fL (7.4-10.4); MONOCYTES % (AUTO) 5 % (2-9); NEUTROPHILS % (AUTO) 73 % (42-75); PLATELET COUNT 218 x10^3/uL (130-400); RED CELL DISTRIBUTION WIDTH 15.8 % (9.4-14.8)
[2020-08-13 08:21] LABS: MD NO
[2020-08-13] MEDS: SODIUM CHLORIDE FLUSH 10ML SYR IVF SCH ×2 (09:00→19:58)
[2020-08-13] MEDS: TAMSULOSIN 0.4 MG CAP.ER.24H PO SCH (09:25)
[2020-08-13] MEDS: SERTRALINE 50MG TABLET PO SCH (09:25)
[2020-08-13] MEDS: LISINOPRIL 20 MG TABLET PO SCH ×2 (09:25→19:58)
[2020-08-13] MEDS: CLOPIDOGREL 75 MG TABLET PO SCH (09:25)
[2020-08-13] MEDS: ASPIRIN 81 MG TABLET EC PO SCH (09:25)
[2020-08-13] MEDS: AMLODIPINE 5 MG TABLET PO SCH (09:26)
[2020-08-13] MEDS: SODIUM CHLORIDE 0.9% 1,000 ML IV SCH ×2 (11:18→23:36)
[2020-08-13 13:23] VITALS: BP 154/82
[2020-08-13 19:58] VITALS: BP 124/76
[2020-08-13] MEDS: ATORVASTATIN 80 MG TABLET PO SCH (19:58)
[2020-08-14 01:40] VITALS: BP 130/78
[2020-08-14] MEDS: ENOXAPARIN 40 MG/0.4 ML SQ SCH (02:01)
[2020-08-14] MEDS: MEROPENEM 1 GM in SODIUM CHLORIDE 0.9% 100 ML IV SCH ×2 (02:01→10:39)
[2020-08-14 06:40] VITALS: BP 148/78
[2020-08-14] MEDS: AMLODIPINE 5 MG TABLET PO SCH (09:02)
[2020-08-14] MEDS: SODIUM CHLORIDE FLUSH 10ML SYR IVF SCH (09:02)
[2020-08-14] MEDS: CLOPIDOGREL 75 MG TABLET PO SCH (09:02)
[2020-08-14] MEDS: TAMSULOSIN 0.4 MG CAP.ER.24H PO SCH (09:02)
[2020-08-14] MEDS: ASPIRIN 81 MG TABLET EC PO SCH (09:02)
[2020-08-14] MEDS: LISINOPRIL 20 MG TABLET PO SCH (09:02)
[2020-08-14] MEDS: SERTRALINE 50MG TABLET PO SCH (09:02)
[2020-08-14] MEDS ORDERED: AMLO-150 PO (11:29)
[2020-08-14] MEDS ORDERED: MERO1PIG IV (11:29)
[2020-08-14 12:55] VITALS: BP 132/76
== END 2020-08-14 16:59 | DRG 698 ==
LOC: ED 23:27 → INTOOBSV 08-05 00:35 → EDIP 08-05 00:35 → 3N 08-05 02:14 → OBSVTOIN 08-06 10:11
PROVIDERS: ADMIT Family Medicine; ATTEND Hospitalist
PROC: 0T2BX0Z Change Drainage Device in Bladder, External Approach (ICD-10-PCS; 2020-08-06)
PROC: 02HV33Z Insertion of Infusion Device into Superior Vena Cava, Percutaneous Approach (ICD-10-PCS; 2020-08-10)
PROC: B5181ZA Fluoroscopy of Superior Vena Cava using Low Osmolar Contrast, Guidance (ICD-10-PCS; 2020-08-10)
PROC: B548ZZA Ultrasonography of Superior Vena Cava, Guidance (ICD-10-PCS; 2020-08-10)
PROC: 0T9B70Z Drainage of Bladder with Drainage Device, Via Natural or Artificial Opening (ICD-10-PCS; principal; 2020-08-11)
DX: T83.518A Infection and inflammatory reaction due to other urinary catheter, initial encounter (principal); E43 Unspecified severe protein-calorie malnutrition; N39.0 Urinary tract infection, site not specified; Z68.1 Body mass index [BMI] 19.9 or less, adult; I69.354 Hemiplegia and hemiparesis following cerebral infarction affecting left non-dominant side; R65.10 Systemic inflammatory response syndrome (SIRS) of non-infectious origin without acute organ dysfunction; Z66 Do not resuscitate; E11.649 Type 2 diabetes mellitus with hypoglycemia without coma; B96.4 Proteus (mirabilis) (morganii) as the cause of diseases classified elsewhere; F01.50 Vascular dementia, unspecified severity, without behavioral disturbance, psychotic disturbance, mood disturbance, and anxiety; Z20.828 Contact with and (suspected) exposure to other viral communicable diseases; D64.9 Anemia, unspecified; E78.5 Hyperlipidemia, unspecified; E86.0 Dehydration; I10 Essential (primary) hypertension; Y84.6 Urinary catheterization as the cause of abnormal reaction of the patient, or of later complication, without mention of misadventure at the time of the procedure; Z87.891 Personal history of nicotine dependence
CPT/HCPCS: 36415; 36573; 71045; 80048; 81001; 82040; 82962; 83036; 85025; 87077; 87086; 87186; 87635; G0378; J0692; J1335; J1650; J1956; J2185; C1751; J3480; J7030

== ENCOUNTER 2020-09-21 10:38 | Emergency (ER) | payer MEDICARE ==
[~2020-09-21] VITALS: Ht 188 cm; Wt 100.0 kg
[~2020-09-21 10:38] MED LIST changes: +AMLO-150 PO; +MERO1PIG IV
--- NOTE | 2020-09-21 10:54 | NUR ---
THIS IS A 65 YO M BIB EMS FROM [facility] W/ C/O SUPRAPUBIC CATHETER DISLODGEMENT. PT HAS HX OF STROKE W/ SPEECH DEFICIT. PER EMS, PT NON AMBULATORY AT BASELINE. PT RESTING ON GURNEY W/ CALL LIGHT IN REACH AND SIDE RAILS UPX2. VSS, NADN. AWAITING ED EVAL.
--- NOTE | 2020-09-21 11:27 | NUR ---
18FR SUPRAPUBIC CATH REPLACED BY W/O DIFFICULTY. PT RESTING ON [employer] W/ CALL LIGHT IN REACH AND SIDE RAILS UPX2. RESP EVEN AND UNLABORED, MELANY.
--- NOTE | 2020-09-21 12:19 | NUR ---
PT IN RAD.
[2020-09-21 12:25] LABS: MICROSCOPIC INDICATED
[2020-09-21] MEDS ORDERED: CEFTRIAXONE 1,000 MG ONE (12:50)
[2020-09-21] MEDS ORDERED: LIDOCAINE-MPF 1%, 5ML ONE (12:50)
[2020-09-21] MEDS ORDERED: CEFTRIAXONE 1,000 MG IM ONE (13:00)
--- NOTE | 2020-09-21 13:08 | NUR ---
PT RESTING ON GURNEY W/ CALL LIGHT IN REACH AND SIDE RAILS UPX2. VSS, NADN. AWAITING TRANSPORT TO [facility].
[2020-09-21 13:33] VITALS: BP 131/69
--- NOTE | 2020-09-21 15:01 | NUR ---
PT VERBALIZED UNDERSTANDING OF DC INSTRUCTIONS. TRANSFERED TO [facility] W/O LINDY. PT RESP EVEN AND UNLABORED,
== END 2020-09-21 15:18 | disposition home or self-care (01) ==
LOC: ED 11:18
DX: T83.9XXA Unspecified complication of genitourinary prosthetic device, implant and graft, initial encounter (principal); N30.00 Acute cystitis without hematuria; E11.9 Type 2 diabetes mellitus without complications; Z86.73 Personal history of transient ischemic attack (TIA), and cerebral infarction without residual deficits
CPT/HCPCS: 51705; 74430; 81001; 87077; 87086; 87186; 96372; 99284; J0696; 51600; 51702; Q9958